=== PATIENT | female | born 1975 | race Caucasian/White ===

== ENCOUNTER 2017-07-20 19:06 | Emergency (ER) | payer OTHER ==
[2017-07-20 19:17] VITALS: BP 143/79; PULSE 66; TEMP 98.7; BMI 40.0
--- NOTE | 2017-07-20 19:21 | PDOC ---
Rapid Medical Evaluation Chief Complaint: Injury Time Seen by Provider: 07/20/17 19:16 Medical Evaluation: Allergies Allergy/AdvReac Type Severity Reaction Status Date / Time No Known Allergies Allergy Verified 07/20/17 19:14 Vital Signs Temp Pulse Resp BP Pulse Ox 98.7 F 66 143/79 100 07/20/17 19:14 07/20/17 19:14 07/20/17 19:14 07/20/17 19:14 07/20/17 19:18 CC: c/o slipped and fell down 10 flight of stairs yesterday c/o head pain and neck pain. no midline pain. denies nausea, vomiting, dizziness, concussion symptoms PE; patient alert left parietal scalp tenderness. no hematoma. no midline cervical neck tenderness. I have ordered: Urine Patient pending evaluation in fast track for further management of care.
[2017-07-20] MEDS ORDERED: METOCLOPRAMIDE HCL INJECTION 10 MG/2 ML VIAL IVPB ONE (19:47)
[2017-07-20] MEDS ORDERED: IBUPROFEN 400 MG TABLET (FP) PO ONE ×2 (19:47→19:56)
--- NOTE | 2017-07-20 19:50 | PDOC ---
History of Present Illness - General Chief Complaint: Injury Stated Complaint: FALL/INJURY Time Seen by Provider: 07/20/17 19:16 History Source: Patient - History of Present Illness Occurred: reports: yesterday Severity: reports: moderate Pain Location: reports: head, neck Method of Injury: Yes: fall Past History - Past Medical History Allergies/Adverse Reactions: Allergies Allergy/AdvReac Type Severity Reaction Status Date / Time No Known Allergies Allergy Verified 07/20/17 19:14 Home Medications: Ambulatory Orders No Home Medications 0 dose .ROUTE UTDICT 11/19/12 COPD: No - Suicide/Smoking/Psychosocial Hx Smoking Status: No Smoking History: Never smoked Number of Cigarettes Smoked Daily: 0 Hx Alcohol Use: No Review of Systems - Review of Systems ABD/GI: No: Nausea, Vomiting Musculoskeletal: Yes: Neck Pain. No: Back Pain Neurological: Yes: Headache. No: Dizziness *Physical Exam - Vital Signs Last Vital Signs Temp Pulse Resp BP Pulse Ox 98.7 F 66 143/79 100 07/20/17 19:14 07/20/17 19:14 07/20/17 19:14 07/20/17 19:14 - Physical Exam General Appearance: Yes: Appropriately Dressed. No: Apparent Distress HEENT: positive: Normal Voice Neck: positive: Tender (to R sternocleidomastoid, no midline ttp, FROMI), Supple Respiratory/Chest: negative: Respiratory Distress Extremity: positive: Normal Inspection Integumentary: positive: Dry, Warm Neurologic: positive: Fully Oriented, Alert, Normal Mood/Affect Medical Decision Making - Medical Decision Making 07/20/17 19:48 42-year-old female, no significant history, presents with head and neck pain status post fall yesterday. Patient states she slipped and fell down approximately 10 steps at home. No LOC, dizziness, visual changes, nausea or vomiting. Not on any blood thinners. Denies any upper extremity weakness or sensory changes. No other injuries at this time. Taking Advil with minimal relief. Patient well-appearing and stable with unremarkable exam. Do not suspect any serious pathology at this time. Will control pain in ED and reassess *DC/Admit/Observation/Transfer Diagnosis at time of Disposition: Fall Qualifiers: Encounter type: initial encounter Qualified Code(s): W19.XXXA - Unspecified fall, initial encounter Head injury Qualifiers: Encounter type: initial encounter Qualified Code(s): S09.90XA - Unspecified injury of head, initial encounter Neck sprain Qualifiers: Encounter type: initial encounter Qualified Code(s): S13.9XXA - Sprain of joints and ligaments of unspecified parts of neck, initial encounter - Discharge Dispostion Disposition: HOME Condition at time of disposition: Improved - Referrals - Patient Instructions Printed Discharge Instructions: DI for Closed Head Injury Additional Instructions: Take Motrin as needed for pain - Post Discharge Activity
[2017-07-20] MEDS ORDERED: METOCLOPRAMIDE HCL INJECTION 10 MG/2 ML VIAL ONE (19:54)
== END 2017-07-20 20:37 | disposition home or self-care (01) ==
LOC: JERFT 19:06
PROC: 3E033GC Introduction of Other Therapeutic Substance into Peripheral Vein, Percutaneous Approach (ICD-10-PCS; principal; 2017-07-20)
DX: S09.8XXA Other specified injuries of head, initial encounter (principal); S13.9XXA Sprain of joints and ligaments of unspecified parts of neck, initial encounter; W10.8XXA Fall (on) (from) other stairs and steps, initial encounter; Y93.89 Activity, other specified; Y92.038 Other place in apartment as the place of occurrence of the external cause
CPT/HCPCS: 84703; 99281-25